=== PATIENT | male | born 1985 ===

== ENCOUNTER 2017-07-20 17:44 | Inpatient (IN) | payer BC ==
[2017-07-21] MEDS ORDERED: NACL 0.9% 1000 ML 1,000 ML IV ONE ×2 (01:05→04:51)
[2017-07-21] MEDS ORDERED: MORPHINE IV ONE (01:06)
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
[2017-07-21 01:30] LABS: Eosinophils % (Auto) 5.8 % (0.0-4.3); Hematocrit 40.8 % (35.5-45.6); Hemoglobin 13.5 gm/dl (11.8-15.2); Mean Corpuscular HGB Conc 33 % (32-34); Mean Corpuscular Hemoglobin 29 pg (28-32); Mean Corpuscular Volume 87 fl (84-94); Platelet Count 208 K/mm3 (140-440); Red Blood Count 4.68 M/mm3 (3.65-5.03); Red Cell Distribution Width 14.8 % (13.2-15.2); White Blood Count 7.8 K/mm3 (4.5-11.0)
[2017-07-21 01:46] LABS: INR 0.87 (0.87-1.13)
[2017-07-21 01:47] LABS: Partial Thromboplastin Time 25.8 Sec. (24.2-36.6)
[2017-07-21 01:51] LABS: Anion Gap 19 mmol/L; BUN/Creatinine Ratio 20; Blood Urea Nitrogen 18 mg/dL (9-20); Calcium 9.2 mg/dL (8.4-10.2); Carbon Dioxide 25 mmol/L (22-30); Chloride 98.9 mmol/L (98-107); Glucose 82 mg/dL (75-100); Potassium 4.2 mmol/L (3.6-5.0); Sodium 139 mmol/L (137-145)
--- NOTE | 2017-07-21 02:37 | Cat Scan Report ---
FINAL REPORT PROCEDURE: CT CHEST W CON TECHNIQUE: Computerized axial tomography of the chest was performed during the IV injection of iodinated nonionic contrast. DLP 663.44 mGy-cm. HISTORY: Chest wall surgery. Left side chest hematoma. COMPARISON: No prior studies are available for comparison. TECHNICAL QUALITY: Satisfactory. FINDINGS: Heart and pericardium: Normal. Thoracic aorta: Normal. Pulmonary vasculature: Normal. Lymph nodes: No enlarged thoracic lymph nodes. Lungs: Minimal bibasilar atelectasis. Pleural space: No effusion, thickening, or pneumothorax. Musculoskeletal structures: Slight dextroscoliotic curvature. Small multilevel Schmorl's nodes. Moderate stranding and induration of the soft tissues of the anterior chest wall with small foci of soft tissue air, left significantly greater than right. A small amount of left-sided gynecomastia. Large area of soft tissue attenuation overlying the left chest wall with mild stranding and indistinctness of the underlying pectoralis major muscle, particularly medial aspect. This measures up to 15 x 4 cm. Upper abdominal structures: No significant abnormality. IMPRESSION: Moderate stranding and induration of the soft tissues of the anterior chest wall with small foci of soft tissue air, left significantly greater than right. Indistinctness of the underlying left pectoral muscle. There is a small amount of right gynecomastia. Large area of soft tissue attenuation overlying the chest wall. Consider could represent asymmetric gynecomastia/mass lesion, but given history concerning for large hematoma which may involve the underlying pectoralis major muscle. Recommend further evaluation and followup to exclude underlying mass lesion if there is continued clinical concern.
[2017-07-21] MEDS ORDERED: MORPHINE ONE ×2 (04:08)
[2017-07-21] MEDS ORDERED: ceFAZolin 1 GM in NACL 0.9% 20 ML IV ONE (04:45)
[2017-07-21] MEDS ORDERED: NACL 0.9% 1000 ML 1,000 ML ONE (05:49)
--- NOTE | 2017-07-21 12:10 | Anesthesia Consultation ---
Anesthesia Consult and Med Hx Date of service: 07/21/17 - Airway Anesthetic Teeth Evaluation: Good ROM Head & Neck: Adequate Mental/Hyoid Distance: Adequate Mallampati Class: Class II Intubation Access Assessment: Probably Good - Pulmonary Exam CTA: Yes - Cardiac Exam Cardiac Exam: RRR - Pre-Operative Health Status ASA Pre-Surgery Classification: ASA1 Proposed Anesthetic Plan: General - Pulmonary Hx Smoking: No Hx Asthma: No - Cardiovascular System Hx Hypertension: No - Endocrine Hx Non-Insulin Dependent Diabetes: No
--- NOTE | 2017-07-21 12:10 | Anesthesia Day of Surgery ---
Anesthesia Day of Surgery - Day of Surgery Patient Examined: Yes Patient H&P Reviewed: Yes Patient is NPO: Yes
[2017-07-21] MEDS: LACTATED RINGERS 1,000 ML IV SCH (12:37)
[2017-07-21] MEDS: MORPHINE IV PRN ×3 (12:43→22:24)
[2017-07-21] MEDS ORDERED: PEPCID PO NR (13:00)
[2017-07-21] MEDS ORDERED: VERSED IV NR (13:00)
[2017-07-21] MEDS ORDERED: XYLOCAINE MPF 2% ONE (13:32)
[2017-07-21] MEDS ORDERED: DIPRIVAN 10 MG/ML IV ONE (13:33)
[2017-07-21] MEDS ORDERED: SUBLIMAZE ONE (13:33)
[2017-07-21] MEDS ORDERED: DECADRON ONE (14:20)
[2017-07-21] MEDS ORDERED: ZOFRAN ONE (14:20)
[2017-07-21] MEDS: ceFAZolin 1 GM in NACL 0.9% 20 ML IV SCH ×2 (16:50→20:27)
--- NOTE | 2017-07-21 20:41 | Operative Report ---
PREOPERATIVE DIAGNOSIS: Status post bilateral breast reduction with mastopexy. Enlargement of the left breast postop. This was done about 6 days ago. SURGERY: Exploration of the left breast area with evacuation of a good 600 mL to 700 mL of organized hematoma and packing and drainage. ANESTHESIA: General. BLOOD LOSS : As above. FINDINGS: The patient had a large amount of blood clots under the skin and the flap. This amounted to a full kidney basin from the operating room. I had to do it through 2 approaches, 1 medial and 1 lateral on the left breast. After doing that, I irrigated the area thoroughly and then a packing was applied using for that purpose 2 inch iodoform gauze from both areas. I did put few stitches to approximate the intracuticular stitch that was done on the patient in the past, just to have a good retention of the skin and subcutaneous tissue together. I was very much satisfied. I made sure not to injure the origin of the nipple to the subcutaneous tissue and to the chest wall. I stayed away from it as much as I can. I had to dissect my way with my finger slowly with blunt dissection. By this, we evacuated the whole hematoma. We took picture of the hematoma in the kidney basin. I was satisfied after irrigation, I left a packing of 2 inch, 1 on each side as mentioned above with about 15 cm outside the skin area. After that maneuvering, we were very much satisfied. A bandage was then applied over the area and then we put back the artificial bras in the usual fashion. The patient was transferred to the recovery room in good condition. I did leave a drain #19 through a small stab wound incision toward the medial aspect of the wound itself. Packing it over the skin with a 2-0 Vicryl. ____ with the situation. The patient was then as mentioned above transferred to PACU in good condition. We are going to keep him maybe 1 or 2 more days to pull the packing slowly and will go from there. JOB# [id number] ZURI/PAYAL CRUZ
--- NOTE | 2017-07-22 01:13 | History and Physical Report ---
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 He is a 31-year-old black male who apparently had a reduction mammoplasty because of gynecomastia and mammoplasty about 5 days ago. This was done in [place]. Apparently, he came here. He notes that his left breast is becoming much larger than his right breast. This has been going on for about 1-2 days now with pain in the area. He was evaluated by our Emergency Room physician and CAT scan showed evidence of a mass, probably a large hematoma in the area of the left breast. With the above-mentioned findings, the patient was thus admitted for further evaluation. PAST SURGICAL HISTORY: He never had surgery before. ALLERGIES: He is not allergic to any medicines. PAST MEDICAL HISTORY: He denied any diabetes. PHYSICAL EXAMINATION: GENERAL: Showed a thin, slim black male, who is in no distress. HEAD AND NECK: Essentially nonrevealing. Neck is supple. CHEST: Essentially clear. HEART: Sound normal to me. It is noted that there is diffuse enlargement of the reconstructed left breast, with at least twice as big as the one on the right side. There is evidence also of streaking on the lateral aspect of that area. The heart sound normal to me, otherwise, they noted that there were 2 transplanted reconstructed nipple on both breasts, both were dark, but there was no evidence of gangrene. ABDOMEN: Soft and benign. EXTREMITIES: Showed no evidence of edema. IMPRESSION: Large hematoma, status post mammoplasty on both sides, the hematoma is on the left side, very large and moderate tenderness in the area. I believe this needs to be addressed surgically, is very large, concern about the nipple areola complex as well. So, I had a lengthy talk with the patient as to need for the above. He wants this to be done and it was done already a while ago. He does have the incision for the mammoplasty on both sides transversely set. JOB# [id number] ZURI/PAYAL
[2017-07-22] MEDS: LACTATED RINGERS 1,000 ML IV SCH ×2 (04:57→19:44)
[2017-07-22] MEDS: ceFAZolin 1 GM in NACL 0.9% 20 ML IV SCH ×3 (04:59→21:48)
[2017-07-22] MEDS: MORPHINE IV PRN ×4 (05:00→19:40)
--- NOTE | 2017-07-22 13:27 | Progress Note ---
Subjective Patient Reports: Positive: feels better, still having pain Narrative: doing OK packing shortened ,wound OK , some drainage in the bulb , will check CBC on reg diet , Objective Vital Signs - 12hr 07/22/17 07/22/17 04:47 07:28 Temperature 98.5 F 98.7 F Pulse Rate 73 85 Respiratory 17 18 Rate Blood Pressure 121/66 128/75 O2 Sat by Pulse 98 99 Oximetry - Labs 07/21/17 01:14 07/21/17 01:14
[2017-07-22] MEDS: PERCOCET 5/325 PO PRN ×2 (16:19→22:00)
[2017-07-22 16:22] LABS: Hematocrit 35.9 % (35.5-45.6); Hemoglobin 11.7 gm/dl (11.8-15.2); Mean Corpuscular HGB Conc 33 % (32-34); Mean Corpuscular Hemoglobin 28 pg (28-32); Mean Corpuscular Volume 86 fl (84-94); Platelet Count 226 K/mm3 (140-440); Red Blood Count 4.16 M/mm3 (3.65-5.03); Red Cell Distribution Width 14.9 % (13.2-15.2); White Blood Count 9.7 K/mm3 (4.5-11.0)
[2017-07-22] MEDS ORDERED: RESTORIL PO ONE (22:00)
[2017-07-23] MEDS: MORPHINE IV PRN ×2 (00:16→08:40)
[2017-07-23] MEDS: ceFAZolin 1 GM in NACL 0.9% 20 ML IV SCH (05:00)
[2017-07-23] MEDS: LACTATED RINGERS 1,000 ML IV SCH (06:21)
[2017-07-23 06:57] LABS: Hematocrit 36.4 % (35.5-45.6); Hemoglobin 11.8 gm/dl (11.8-15.2); Mean Corpuscular HGB Conc 33 % (32-34); Mean Corpuscular Hemoglobin 29 pg (28-32); Mean Corpuscular Volume 88 fl (84-94); Platelet Count 220 K/mm3 (140-440); Red Blood Count 4.16 M/mm3 (3.65-5.03); Red Cell Distribution Width 15.1 % (13.2-15.2)
[2017-07-23] MEDS: PERCOCET 5/325 PO PRN (12:03)
[2017-07-23 12:07] VITALS: BP 136/84
--- NOTE | 2017-07-24 00:06 | Discharge Summary ---
FINAL DIAGNOSES: Enlarge hematoma in the area of the left breast, status post reduction mammoplasty. HOSPITAL COURSE: This man was seen in the ER. He was admitted because of pain to the left breast area. He gives a history of reduction mammoplasty just 5 days prior to this admission. This was done in [place]. He did well; however, in the last 2 days he started having some pain to the left breast area in the incisional aspect and he notes that his left breast is larger than his right side. This was documented on the CAT scan as well, so the above-mentioned findings, he was admitted for further evaluation. Upon admission, his hemoglobin was 13.5, upon discharge was 11.8. The INR is normal. So because of the above and the pain as well as the swelling that is fairly large in the left breast, he was taken to the operating room where he underwent evacuation of a huge hematoma with packing and drainage. This was done under general anesthesia. Postoperatively, he did well. The next day, we shortened the packing and the day of his discharge, it was taken out. He is able to move around and he was advised to keep the binder around his chest, no driving, to take Tylenol for pain, to call me if he has any problem, otherwise see me in about 10 days. FINAL DIAGNOSES: Hematoma large, status post reduction mammoplasty on the left side where got about 600-700 mL of blood clots from the operation. To see me in about 10 days in my office. JOB# [id number] ZURI/PAYAL
== END 2017-07-23 14:30 | disposition home or self-care (01) | DRG 921 ==
LOC: ED 17:44 → 3B-SURG 07-21 04:33
PROVIDERS: ADMIT Surgery; ATTEND Surgery
PROC: 0HCU0ZZ Extirpation of Matter from Left Breast, Open Approach (ICD-10-PCS; principal; 2017-07-21)
DX: L76.32 Postprocedural hematoma of skin and subcutaneous tissue following other procedure (principal); S20.02XA Contusion of left breast, initial encounter; Y83.8 Other surgical procedures as the cause of abnormal reaction of the patient, or of later complication, without mention of misadventure at the time of the procedure; Y92.89 Other specified places as the place of occurrence of the external cause
CPT/HCPCS: 36415; 71260; 80048; 85025; 85027; 85610; 85730; 86850; 86900; 86901; 96361; 96365; 96375; J0690; J1100; J2250; J2270; J2405; J2704; J3010; J7030; J7120; Q9967